=== PATIENT | female | born 1975 | race Two or more races ===

== ENCOUNTER 2018-03-21 10:49 | Emergency (ER) | payer MEDICAID ==
[2018-03-21 11:57] LABS: URINE SOURCE CLEAN C
[2018-03-21 11:59] LABS: URINE BILIRUBIN NEGATIVE (NEGATIVE); URINE BLOOD SMALL (NEGATIVE); URINE GLUCOSE (UA) NEGATIVE (NEGATIVE); URINE KETONE NEGATIVE (NEGATIVE); URINE LEUKOCYTE ESTERASE MODERATE (NEGATIVE); URINE MICROSCOPIC INDICATED? YES; URINE NITRATE NEGATIVE (NEGATIVE); URINE PROTEIN TRACE mg/dL (NEGATIVE); URINE UROBILINOGEN 0.2 E.U./dL (0.2 - 1.0)
[2018-03-21 12:00] LABS: URINE CLARITY CLOUDY (CLEAR); URINE COLOR YELLOW
[2018-03-21 12:03] LABS: URINE EPITHELIAL CELLS MODERATE /lpf (FEW)
[2018-03-21 12:04] LABS: URINE BACTERIA 4+ /hpf (NONE SEEN)
[2018-03-21 12:53] LABS: AMPHETAMINE URINE POSITIVE (NEGATIVE); BARBITURATES URINE NEGATIVE (NEGATIVE); BENZODIAZEPINES QUAL URINE NEGATIVE (NEGATIVE); CANNABINOID THC NEGATIVE (NEGATIVE); COCAINE METABOLITE QUAL URINE NEGATIVE (NEGATIVE); METHADONE URINE NEGATIVE (NEGATIVE); METHAMPHETAMINES QUAL URINE NEGATIVE (NEGATIVE); OPIATES (MORPHINE) QUAL. URINE NEGATIVE (NEGATIVE); PHENCYCLIDINE (PCP) URINE NEGATIVE (NEGATIVE); TRICYCLICS (TCA) QUAL. URINE NEGATIVE (NEGATIVE)
--- NOTE | 2018-03-21 13:33 | ED Physician Chart ---
ED Chief Complaint/HPI - Patient Information Date Seen:: 03/21/18 Time Seen:: 11:08 Chief Complaint:: vaginal discharge History of Present Illness:: vaginal discharge, last unprotected sex 2 weeks ago. just released from [facility]. Allergies:: Allergies Allergy/AdvReac Type Severity Reaction Status Date / Time Sulfa (Sulfonamide Allergy Verified 03/21/18 11:07 Antibiotics) sulfamethoxazole Allergy Verified 03/21/18 11:07 [From Bactrim] trimethoprim [From Bactrim] Allergy Verified 03/21/18 11:07 Vitals:: Vital Signs - 8 hr 03/21/18 03/21/18 11:08 13:06 Temp 97.1 F 98.2 F HR 79 72 RR 18 15 BP 122/86 120/79 O2 Sat % 98 99 Historian:: Patient Review:: Nurse's Note Reviewed ED Review of Systems - Review of Systems General/Constitutional: No fever, No chills, No weight loss, No weakness, No diaphoresis, No edema, No loss of appetite Skin: No skin lesions, No rash, No bruising Head: No headache, No light-headedness Eyes: No loss of vision, No pain, No diplopia ENT: No earache, No nasal drainage, No sore throat, No tinnitus Neck: No neck pain, No swelling, No thyromegaly, No stiffness, No mass noted Cardio Vascular: No chest pain, No palpitations, No PND, No orthopnea, No edema Pulmonary: No SOB, No cough, No sputum, No wheezing GI: No nausea, No vomiting, No diarrhea, No pain, No melena, No hematochezia, No constipation, No hematemesis G/U: No dysuria, No frequency, No hematuria Special 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 Musculoskeletal: No bone or joint pain, No back pain, No muscle pain Endocrine: No polyuria, No polydipsia Psychiatric: No prior psych history, No depression, No anxiety, No suicidal ideation Hematopoietic: No bruising, No lymphadenopathy Allergic/Immuno: No urticaria, No angioedema Neurological: No syncope, No focal symptoms, No weakness, No paresthesia, No headache, No seizure, No dizziness, No confusion, No vertigo ED Past Medical History - Past Medical History Obtainable: Yes Past Medical History: No significant medical hx ED Physical Exam - Physical Examination General/Constitutional: Awake, Well-developed, well-nourished, Alert, No distress Head: Atraumatic Eyes: Lids, conjuctiva normal Other Skin comments:: raw on the outside of the vagina with erythematous skin. ENMT: External ears, nose nl Neck: Nontender Respiratory: Nl effort/Exclusion, Clear to Auscultation, No Wheeze/Rhonchi/Rales Cardio Vascular: RRR GI: No tenderness/rebounding/guarding, No organomegaly : No CVA tenderness Other comments:: large amount of purulent discharge in vault. external vulva inflamed and swollen with erythema. no lesions present. Extremities: No tenderness or effusion, Full ROM, normal strength in all extremities, No edema Neuro/Psych: Alert/oriented Misc: Normal back, No paraspinal tenderness ED Labs/Radiology/EKG Results - Lab Results Results: Laboratory Tests 03/21/18 03/21/18 03/21/18 11:30 11:52 12:15 Urine Source CLEAN C Urine Color YELLOW Urine Clarity CLOUDY H Urine pH 6.0 Ur Specific [place] >= 1.030 Urine Protein TRACE Urine Glucose (UA) NEGATIVE Urine Ketones NEGATIVE Urine Blood SMALL H Urine Nitrate NEGATIVE Urine Bilirubin NEGATIVE Urine Urobilinogen 0.2 Ur Leukocyte Esterase MODERATE H Urine RBC 5-10 H Urine WBC 10-25 H Ur Epithelial Cells MODERATE Urine Bacteria 4+ H Epi Cells (Wet Prep) FEW Bacteria (Wet Prep) MANY Clue Cells (Wet Prep) NONE SEEN Trichomonas (Wet Prep) FEW Vaginal WBC MODERATE Vaginal RBC FEW Urine Opiates Screen NEGATIVE Urine Methadone Screen NEGATIVE Ur Barbiturates Screen NEGATIVE Ur Tricyclics Screen NEGATIVE Ur Phencyclidine Scrn NEGATIVE Amphetamines Screen POSITIVE H U Methamphetamines Scrn NEGATIVE U Benzodiazepines Scrn NEGATIVE U Cocaine Metab Screen NEGATIVE U Cannabinoids Screen NEGATIVE Yeast (Wet Prep) NONE SEEN ED Assessment - Assessment General Assessment: wet mount: no clue cells or yeast. positive trich. ED Septic Shock - . Is Septic Shock (SBP<90, OR Lactate>4 mmol\L) present?: No - <6hrs of presentation: Vital Signs: Vital Signs - 8 hr 03/21/18 03/21/18 11:08 13:06 Temp 97.1 F 98.2 F HR 79 72 RR 18 15 BP 122/86 120/79 O2 Sat % 98 99 ED Reassessment (Disposition) - Reassessment Reassessment Condition:: Improved - Diagnosis Diagnosis:: 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, presumed STD Trichomonas Urinary tract infection. - Aftercare/Follow up Instructions Aftercare/Follow-Up Instructions:: Refer to Discharge Instructions Notes:: No sex. Have partner checked out. No sex until all lab results return and treatment is completed. Medication Prescribed:: Macrobid and Flagyl. - Patient Disposition Discharge/Transfer:: Home Condition at Disposition:: Stable, Improved
== END 2018-03-21 13:45 | disposition home or self-care (01) ==
LOC: ER 10:49
DX: A59.9 Trichomoniasis, unspecified (principal); N39.0 Urinary tract infection, site not specified; N89.8 Other specified noninflammatory disorders of vagina; Z88.1 Allergy status to other antibiotic agents; Z88.2 Allergy status to sulfonamides
CPT/HCPCS: 99284; 96372 ×2; 80307; 87086; 87210; 87070; 81001; J1885; J0696; Z7502

== ENCOUNTER 2018-03-23 08:17 | Emergency (ER) | payer MEDICAID ==
--- NOTE | 2018-03-23 09:53 | ED Physician Chart ---
ED Chief Complaint/HPI - Patient Information Date Seen:: 03/23/18 Time Seen:: 08:35 Chief Complaint:: Vaginal Pain History of Present Illness:: onset x 3 days of intermittent, irritation type vaginal pain and mild vaginal discharge; pt Dx with UTI and Trichamonis Vaginitis 2 days ago and Rx with Macrobid and Flagyl 2 days ago with improvement; pt has not tried taking any pain medications; pt denies trauma, LOC, ALOC, AMS, H/As, S/T, E/As, neck pain, cough, C/P, SOB, Abd. 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 Allergies:: Allergies Allergy/AdvReac Type Severity Reaction Status Date / Time Sulfa (Sulfonamide Allergy Verified 03/21/18 11:07 Antibiotics) sulfamethoxazole Allergy Verified 03/21/18 11:07 [From Bactrim] trimethoprim [From Bactrim] Allergy Verified 03/21/18 11:07 Vitals:: Vital Signs - 8 hr 03/23/18 03/23/18 08:35 08:48 Temp 98.0 F 97.4 F HR 78 58 RR 17 16 BP 122/77 112/70 O2 Sat % 98 98 Historian:: Patient Review:: Nurse's Note Reviewed ED Review of Systems - Review of Systems General/Constitutional: No fever, No chills, No weight loss, No weakness, No diaphoresis, No edema, No loss of appetite Skin: No skin lesions, No rash, No bruising Head: No headache, No light-headedness Eyes: No loss of vision, No pain, No diplopia ENT: No earache, No nasal drainage, No sore throat, No tinnitus Neck: No neck pain, No swelling, No thyromegaly, No stiffness, No mass noted Cardio Vascular: No chest pain, No palpitations, No PND, No orthopnea, No edema Pulmonary: No SOB, No cough, No sputum, No wheezing GI: No nausea, No vomiting, No diarrhea, No pain, No melena, No hematochezia, No constipation, No hematemesis G/U: Dysuria, No frequency, No hematuria, No nacturia 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: 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, No abnormal vaginal bleed, No contraction Musculoskeletal: No bone or joint pain, No back pain, No muscle pain Endocrine: No polyuria, No polydipsia Psychiatric: No prior psych history, No depression, No anxiety, No suicidal ideation, No homicidal ideation, No auditory hallucination, No visual hallucination Hematopoietic: No bruising, No lymphadenopathy Allergic/Immuno: No urticaria, No angioedema Neurological: No syncope, No focal symptoms, No weakness, No paresthesia, No headache, No seizure, No dizziness, No confusion, No vertigo ED Past Medical History - Past Medical History Obtainable: Yes Past Medical History: Other (UTI; Vaginitis) Family History: None Social History: Non Smoker, No Alcohol, No Drug Use, Single Surgical History: None Psychiatricy History: None Medication: Reviewed Family Medical History - Family Member Mother History Unknown: Yes Hx Family Cancer: Yes ED Physical Exam - Physical Examination General/Constitutional: Awake, Well-developed, well-nourished, Alert, No distress, GCS 15, Non-toxic appearing, Ambulatory Head: Atraumatic Eyes: Lids, conjuctiva normal, PERRL, EOMI Skin: Nl inspection, No rash, No skin lesions, No ecchymosis, Well hydrated, No lymphadenopathy ENMT: External ears, nose nl, TM canals nl, Nasal exam nl, Lips, teeth, gums nl , Oropharynx nl, Tonsils nl Neck: Nontender, Full ROM w/o pain, No JVD, No nuchal rigidity, No bruit, No mass, No stridor Other Neck comments:: supple; no meningeal signs; no cervical tenderness; no bruits Respiratory: Nl effort/Exclusion, Clear to Auscultation, No Wheeze/Rhonchi/Rales Cardio Vascular: RRR, No murmur, gallop, rubs, NL S1 S2, Carotid/Femoral/Distal pulses equal bilaterally GI: No tenderness/rebounding/guarding, No organomegaly, No hernia, Normal BS's, Nondistended, No mass/bruits, No McBurney tenderness, Rectum exam nl Other GI comments:: no pulsatile masses : No CVA tenderness, NL external genitalia Other comments:: Pelvic Exam: deferred by pt Extremities: No tenderness or effusion, Full ROM, normal strength in all extremities, No edema, Normal digits & nails Neuro/Psych: Alert/oriented, DTR's symmetric, Normal sensory exam, Normal motor strength, Judgement/insight normal, Mood normal, Normal gait, No focal deficits Misc: Normal back, No paraspinal tenderness ED Septic Shock - . Is Septic Shock (SBP<90, OR Lactate>4 mmol\L) present?: No - <6hrs of presentation: Vital Signs: Vital Signs - 8 hr 03/23/18 03/23/18 08:35 08:48 Temp 98.0 F 97.4 F HR 78 58 RR 17 16 BP 122/77 112/70 O2 Sat % 98 98 ED Reassessment (Disposition) - Reassessment Reassessment:: pt is asymptomatic upon discharge Reassessment Condition:: Improved - Diagnosis Diagnosis:: Dx: Vaginitis; Vaginal Pain; Vaginal Pain-resolved; Fever; Vaginal Discharge; Dysuria; UTI - Aftercare/Follow up Instructions Aftercare/Follow-Up Instructions:: Counseled pt regarding lab results/diagnosis & need follow up, Refer to Discharge Instructions, Counseled pt & family regarding lab results/diagnosis & need follow up Medication Prescribed:: Rx: Tylenol 500mg po qid prn pain/fever; Continue Flagyl and Macrobid as prescribed; fluids - Patient Disposition Discharge/Transfer:: Home Condition at Disposition:: Stable, Improved (RTER prn if existing s/s reoccur and/or get worse and/or any other new s/s occur; ACIs given for all above Dx; Refer to OB-EVENT SPECIALIST FOOD DEMONSTRATOR Specialist/Urologist/Television Producer [place]; F/U with PMD in one day or prn; RTER prn if concerned)
== END 2018-03-23 08:54 | disposition home or self-care (01) ==
LOC: ER 08:17
DX: N76.0 Acute vaginitis (principal); N39.0 Urinary tract infection, site not specified; Z88.1 Allergy status to other antibiotic agents; Z88.2 Allergy status to sulfonamides

== ENCOUNTER 2019-01-14 06:35 | Emergency (ER) | payer MEDICAID ==
--- NOTE | 2019-01-14 07:35 | ED Physician Chart ---
ED Chief Complaint/HPI - Patient Information Date Seen:: 01/14/19 Time Seen:: 07:20 Chief Complaint:: dysuria History of Present Illness:: Patient had onset yesterday of dysuria and noted hematuria this morning. She has had chills and has not taken her temperature. She denies backache. Patient has had many prior urinary tract infections. Cipro has been an effective antibiotic in the past for her urinary tract infections. Allergies:: Allergies Allergy/AdvReac Type Severity Reaction Status Date / Time Sulfa (Sulfonamide Allergy Verified 03/21/18 11:07 Antibiotics) sulfamethoxazole Allergy Verified 03/21/18 11:07 [From Bactrim] trimethoprim [From Bactrim] Allergy Verified 03/21/18 11:07 Vitals:: Vital Signs - 8 hr 01/14/19 07:00 Temp 97.8 F HR 64 RR 19 BP 135/88 O2 Sat % 100 Historian:: Patient Review:: Nurse's Note Reviewed ED Review of Systems - Review of Systems General/Constitutional: No fever, Chills Skin: No skin lesions Head: No headache Eyes: No loss of vision ENT: No earache Neck: No neck pain Cardio Vascular: No chest pain Pulmonary: No SOB GI: No nausea, No vomiting, No diarrhea G/U: Dysuria Musculoskeletal: No bone or joint pain Endocrine: No polyuria Psychiatric: No prior psych history Hematopoietic: No bruising Allergic/Immuno: No urticaria Neurological: No syncope ED Past Medical History - Past Medical History Past Medical History: Other (frequent urinary tract infections) Family History: Cancer Social History: Smoker, Homeless, Other (smokes one half to one pack of cigarettes a day) Surgical History: other (tonsillectomy) Psychiatricy History: None Family Medical History - Family Member Mother History Unknown: Yes Hx Family Cancer: Yes ED Physical Exam - Physical Examination General/Constitutional: Awake, Well-developed, well-nourished, Alert, No distress Head: Atraumatic Eyes: Lids, conjuctiva normal, PERRL Skin: Nl inspection, No rash ENMT: External ears, nose nl, TM canals nl, Nasal exam nl, Lips, teeth, gums nl Neck: No nuchal rigidity Respiratory: Nl effort/Exclusion, Clear to Auscultation Cardio Vascular: RRR, No murmur, gallop, rubs, NL S1 S2 GI: No tenderness/rebounding/guarding, No organomegaly, No hernia, Normal BS's : No CVA tenderness Extremities: No edema, Normal digits & nails Neuro/Psych: No focal deficits Misc: No paraspinal tenderness ED Labs/Radiology/EKG Results - Lab Results Results: Laboratory Tests 01/14/19 07:22 POC Ur Test Negative Laboratory Results POC Ur Test Negative 01/14/19 07:22 Laboratory Results Urine Source [place] 01/14/19 08:02 Urine Color YELLOW 01/14/19 08:02 Urine Clarity CLOUDY (CLEAR) H 01/14/19 08:02 Urine pH 6.0 (4.6 - 8.0) 01/14/19 08:02 Ur Specific [place] 1.020 (1.005-1.030) 01/14/19 08:02 Urine Protein TRACE mg/dL (NEGATIVE) 01/14/19 08:02 Urine Glucose (UA) NEGATIVE mg/dL (NEGATIVE) 01/14/19 08:02 Urine Ketones 15 mg/dL (NEGATIVE) H 01/14/19 08:02 Urine Blood LARGE (NEGATIVE) H 01/14/19 08:02 Urine Nitrate NEGATIVE (NEGATIVE) 01/14/19 08:02 Urine Bilirubin NEGATIVE (NEGATIVE) 01/14/19 08:02 Urine Urobilinogen 0.2 E.U./dL (0.2 - 1.0) 01/14/19 08:02 Ur Leukocyte Esterase SMALL (NEGATIVE) H 01/14/19 08:02 Urine RBC 25-50 /hpf (0-5) H 01/14/19 08:02 Urine WBC 10-25 /hpf (0-5) H 01/14/19 08:02 Ur Epithelial Cells FEW /lpf (FEW) 01/14/19 08:02 Urine Bacteria FEW /hpf (NONE SEEN) 01/14/19 08:02 POC Ur Test Negative 01/14/19 07:22 ED Septic Shock - . Is Septic Shock (SBP<90, OR Lactate>4 mmol\L) present?: No - <6hrs of presentation: Vital Signs: Vital Signs - 8 hr 01/14/19 07:00 Temp 97.8 F HR 64 RR 19 BP 135/88 O2 Sat % 100 ED Reassessment (Disposition) - Reassessment Reassessment Condition:: Unchanged - Diagnosis Diagnosis:: Urinary tract infection - Aftercare/Follow up Instructions Aftercare/Follow-Up Instructions:: Refer to Discharge Instructions - Patient Disposition Discharge/Transfer:: Home Condition at Disposition:: Stable, Unchanged
[2019-01-14 08:08] LABS: URINE SOURCE MIDSTREAM
[2019-01-14 08:09] LABS: URINE BILIRUBIN NEGATIVE (NEGATIVE); URINE BLOOD LARGE (NEGATIVE); URINE GLUCOSE (UA) NEGATIVE (NEGATIVE); URINE KETONE 15 mg/dL (NEGATIVE); URINE LEUKOCYTE ESTERASE SMALL (NEGATIVE); URINE MICROSCOPIC INDICATED? YES; URINE NITRATE NEGATIVE (NEGATIVE); URINE PROTEIN TRACE mg/dL (NEGATIVE); URINE UROBILINOGEN 0.2 E.U./dL (0.2 - 1.0)
[2019-01-14 08:18] LABS: URINE CLARITY CLOUDY (CLEAR); URINE COLOR YELLOW
[2019-01-14 08:19] LABS: URINE RBC 25-50 /hpf (0-5)
[2019-01-14 08:20] LABS: URINE EPITHELIAL CELLS FEW /lpf (FEW)
[2019-01-14 08:21] LABS: URINE BACTERIA FEW /hpf (NONE SEEN)
== END 2019-01-14 08:49 | disposition home or self-care (01) ==
LOC: ER 06:35
DX: N39.0 Urinary tract infection, site not specified (principal); F17.210 Nicotine dependence, cigarettes, uncomplicated; Z88.2 Allergy status to sulfonamides; Z88.1 Allergy status to other antibiotic agents; Z59.0 Homelessness; Z90.89 Acquired absence of other organs
CPT/HCPCS: 81001-TC; 81025-TC; 87086-90; Z7502; Z7610